=== PATIENT | male | born 1980 | race Caucasian/White ===

== ENCOUNTER 2016-12-31 13:14 | Outpatient (CLI) | payer SELFPAY ==
[2016-12-31] MEDS ORDERED: ALBUTEROL NEB 2.5 MG/3 ML INH ONE (14:00)
== END 2016-12-31 13:15 | disposition home or self-care (01) ==
LOC: RT 13:14
PROVIDERS: ATTEND Internal Medicine
DX: J45.901 Unspecified asthma with (acute) exacerbation (principal)
CPT/HCPCS: 94060; 94729; J7613

== ENCOUNTER 2017-02-24 11:45 | Emergency (ER) | payer SELFPAY ==
[2017-02-24 11:54] VITALS: BP 153/102
[2017-02-24] MEDS ORDERED: BUFFERED LIDOCAINE 10 ML SYRINGE ONE (12:40)
--- NOTE | 2017-02-24 12:40 | ED Physician Documentation ---
PD HPI SKIN - Stated complaint Stated Complaint: RT LEG LUMP - Chief complaint Chief Complaint: Wound - History obtained from History obtained from: Patient - History of Present Illness Timing - onset: Other (There is a red patch in the anterior right thigh that has been there for a few days which is mildly painful, also has a swollen pimple or sebaceous cyst on the right side of the neck. No associated fevers or chills.) Review of Systems Constitutional: denies: Fever, Chills Respiratory: reports: Reviewed and negative GI: reports: Reviewed and negative : reports: Reviewed and negative PD PAST MEDICAL HISTORY - Past Medical History Past Medical History: Yes Cardiovascular: Hypertension Respiratory: Asthma - Past Surgical History Past Surgical History: No - Present Medications Home Medications: Ambulatory Orders Medication Instructions Recorded Confirmed Albuterol Sulfate [Albuterol PRN 10/06/13 10/06/13 Sulfate Hfa] Beclomethasone 40 Mcg [Qvar 40] 10/06/13 10/06/13 Hydrochlorothiazide 10/06/13 10/06/13 Cephalexin [Keflex] 500 mg PO QID #40 capsule 02/24/17 Losartan [Cozaar] 50 mg PO DAILY 02/24/17 02/24/17 amLODIPine [Norvasc] 5 mg PO DAILY 02/24/17 02/24/17 - Allergies Allergies/Adverse Reactions: Allergies Allergy/AdvReac Type Severity Reaction Status Date / Time No Known Drug Allergies Allergy Verified 02/24/17 11:54 - Social History Does the pt smoke?: Yes Smoking Status: Current every day smoker Does the pt drink ETOH?: Yes Does the pt have substance abuse?: No - Immunizations Immunizations are current?: Yes - POLST Patient has POLST: No PD ED PE NORMAL - Vitals Vital signs reviewed: Yes - General General: Alert and oriented X 3, No acute distress - HEENT HEENT: Other (Small sebaceous cyst over the right neck,) - Neck Neck: Supple, no meningeal sign, No bony TTP - Derm Derm: Other (There is a small patch of cellulitis measuring about 2 cm in diameter over the anterior right thigh without palpable abscess or fluid collection on bedside ultrasound.) - Neuro Neuro: Alert and oriented X 3, Normal speech - Psych Psych: Normal mood, Normal affect Results - Vitals Vitals: Vital Signs - 24 hr 02/24/17 11:50 Temperature 36.5 C Heart Rate 74 Respiratory 16 Rate Blood Pressure 153/102 H O2 Saturation 100 Oxygen O2 Source Room air Procedures - Abscess I&D (location) Right neck Preparation: Betadine. No: Lidocaine 1% (he declined anesthetic) Incision: Incised with scalpel, Purulent drainage Other: Pt tolerated well, Dressing applied, Antibiotic prescribed Departure - Departure Disposition: 01 Home, Self Care Clinical Impression: Sebaceous cyst Cellulitis Qualifiers: Site of cellulitis: extremity Site of cellulitis of extremity: lower extremity Laterality: right Qualified Code(s): L03.115 - Cellulitis of right lower limb Condition: Good Record reviewed to determine appropriate education?: Yes Instructions: ED Infec Skin Cellulitis Prescriptions: Cephalexin [Keflex] 500 mg PO QID #40 capsule Comments: Call your doctor to arrange a follow-up appointment, make the next available appointment. In the interim, return anytime if worse or if new symptoms develop. Your blood pressure was elevated today on check into the emergency department. This does not mean that you have hypertension, it is a common phenomenon to come to the emergency department and have elevated blood pressure. I recommend that you see your primary care physician within the week to have it rechecked when you are feeling better. Discharge Date/Time: 02/24/17 12:44
== END 2017-02-24 12:44 | disposition home or self-care (01) ==
LOC: ED 11:45
DX: L72.3 Sebaceous cyst (principal); L03.115 Cellulitis of right lower limb; I10 Essential (primary) hypertension; F17.200 Nicotine dependence, unspecified, uncomplicated
CPT/HCPCS: 10060; 99283

== ENCOUNTER 2019-02-14 11:23 | Emergency (ER) | payer OTHER ==
[2019-02-14] MEDS ORDERED: ONDANSETRON ODT 4 MG TABLET TL STA (12:26)
[2019-02-14] MEDS ORDERED: predniSONE 20 MG TABLET PO STA (12:26)
--- NOTE | 2019-02-14 12:36 | ED Physician Documentation ---
PD HPI ABD PAIN - Stated complaint Stated Complaint: AB PX - Chief complaint Chief Complaint: Abd Pain - History obtained from History obtained from: Patient - History of Present Illness Timing - onset: How many days ago (3) Timing - details: Gradual onset Pain level max: 4 Pain level now: 3 Quality: Cramping Location: All over / everywhere Improved by: Other (nothing) Worsened by: Other (nothing) Associated symptoms: Nausea, Diarrhea. No: Fever, Vomiting, Hematemesis, Constipation, Melena, Hematochezia, Dysuria - Additional information Additional information: 39-year-old male states that he had a flulike illness last week. This week he has nausea without vomiting. Also has some diarrhea, no blood. He also states that he has a right inguinal hernia. Scheduled to see surgery this week. He is having pain at the site, but not significantly more than usual. No swelling. Review of Systems Constitutional: denies: Fever, Chills Respiratory: denies: Cough GI: reports: Nausea, Diarrhea. denies: Vomiting Skin: denies: Rash Musculoskeletal: denies: Neck pain, Back pain Neurologic: denies: Headache PD PAST MEDICAL HISTORY - Past Medical History Cardiovascular: Hypertension Respiratory: Asthma - Past Surgical History Past Surgical History: No - Present Medications Home Medications: Ambulatory Orders Medication Instructions Recorded Confirmed Albuterol Sulfate [Albuterol PRN 10/06/13 10/06/13 Sulfate Hfa] Beclomethasone 40 Mcg [Qvar 40] 10/06/13 10/06/13 Hydrochlorothiazide 10/06/13 10/06/13 Cephalexin [Keflex] 500 mg PO QID #40 capsule 02/24/17 Losartan [Cozaar] 50 mg PO DAILY 02/24/17 02/24/17 amLODIPine [Norvasc] 5 mg PO DAILY 02/24/17 02/24/17 - Allergies Allergies/Adverse Reactions: Allergies Allergy/AdvReac Type Severity Reaction Status Date / Time No Known Drug Allergies Allergy Verified 02/24/17 11:54 - Social History Does the pt smoke?: Yes Smoking Status: Current every day smoker Does the pt drink ETOH?: Yes Does the pt have substance abuse?: No - Immunizations Immunizations are current?: Yes - POLST Patient has POLST: No PD ED PE NORMAL - Vitals Vital signs reviewed: Yes - General General: Alert and oriented X 3, No acute distress - HEENT HEENT: Moist mucous membranes - Neck Neck: Supple, no meningeal sign - Cardiac Cardiac: RRR - Respiratory Respiratory: No respiratory distress, Clear bilaterally - Abdomen Abdomen: Soft, Non tender, Non distended - Male Male : Other (normal. no palpable hernia. ) - Derm Derm: Warm and dry - Extremities Extremities: No deformity, No edema - Neuro Neuro: Alert and oriented X 3 Results - Vitals Vitals: Vital Signs - 24 hr 02/14/19 11:29 Temperature 37.2 C Heart Rate 83 Respiratory 15 Rate Blood Pressure 151/91 H O2 Saturation 100 Oxygen O2 Source Room air - Labs Labs: Laboratory Tests 02/14/19 02/14/19 02/14/19 12:39 12:39 12:45 WBC 5.7 RBC 4.27 L Hgb 14.1 Hct 42.2 MCV 98.8 H MCH 33.0 H MCHC 33.4 RDW 13.3 Plt Count 298 MPV 9.5 Neut # (Auto) 3.0 Lymph # (Auto) 2.0 [place] # (Auto) 0.6 Eos # (Auto) 0.2 Baso # (Auto) 0.0 Absolute Nucleated RBC 0.00 Nucleated RBC % 0.0 Sodium 138 Potassium 4.0 Chloride 104 Carbon Dioxide 26 Anion Gap 8.0 BUN 12 Creatinine 0.8 Estimated GFR (MDRD) 108 Glucose 84 Calcium 9.5 Total Bilirubin 0.7 AST 27 ALT 25 Alkaline Phosphatase 30 L Total Protein 7.8 Albumin 4.4 Globulin 3.4 Albumin/Globulin Ratio 1.3 Lipase 38 Urine Color YELLOW Urine Clarity CLOUDY Urine pH 8.5 H Ur Specific [place] 1.010 Urine Protein NEGATIVE Urine Glucose (UA) NEGATIVE Urine Ketones NEGATIVE Urine Occult Blood NEGATIVE Urine Nitrite NEGATIVE Urine Bilirubin NEGATIVE Urine Urobilinogen 1 (NORMAL) Ur Leukocyte Esterase NEGATIVE Urine RBC 0-5 Urine WBC 0-3 Ur Squamous Epith Cells RARE Squamous Amorphous Sediment Marked Urine Bacteria Few Ur Microscopic Review INDICATED Urine Culture Comments NOT INDICATED PD MEDICAL DECISION MAKING - ED course Complexity details: reviewed results, re-evaluated patient, considered differential, d/w patient ED course: Patient is well-appearing, nontoxic. Afebrile. No evidence of incarcerated hernia. No evidence of bowel obstruction. No significant lab abnormalities. Refuses any further medication. Does have a light rash following his illness last week. Does not want to take any steroids for this. This should improve on its own. We will have him follow-up with his doctor and his surgeon for further evaluation. Patient counseled regarding signs and symptoms for which I believe and urgent re-evaluation would be necessary. Patient with good understanding of and agreement to plan and is comfortable going home at this time This document was made in part using voice recognition software. While efforts are made to proofread this document, sound alike and grammatical errors may occur. Departure - Departure Disposition: 01 Home, Self Care Clinical Impression: Viral gastroenteritis Condition: Good Instructions: ED Gastroenteritis Viral Follow-Up: Ned Gleason MD [Primary Care Provider] - Within 1 week Cheryl Wheat MD [Provider Admit Priv/Credential] - 02/18/19 Comments: This should improve over the next few days. Return if you worsen. Follow-up with Dr. Wheat for further care.
[2019-02-14 12:44] LABS: BASOPHILS % (AUTO) 0.7 %; EOSINOPHILS # (AUTO) 0.2 10^3/uL (0.0-0.7); EOSINOPHILS % (AUTO) 2.6 %; HGB - HEMOGLOBIN 14.1 g/dL (14.0-18.0); LYMPHOCYTES % (AUTO) 34.5 %; MEAN CORPUSCULAR HGB CONC 33.4 g/dL (32.0-36.0); MEAN CORPUSCULAR VOLUME 98.8 fL (80.0-94.0); MEAN PLATELET VOLUME 9.5 fL (7.4-11.4); MONOCYTES # (AUTO) 0.6 10^3/uL (0.0-1.0); MONOCYTES % (AUTO) 10.1 %; NEUTROPHILS % (AUTO) 51.9 %; PLT - PLATELET COUNT 298 10^3/uL (130-450); RED BLOOD COUNT 4.27 10^6/uL (4.70-6.10); RED CELL DISTRIBUTION WIDTH 13.3 % (12.0-15.0); WHITE BLOOD COUNT 5.7 x10^3/uL (4.8-10.8)
[2019-02-14 12:57] LABS: ALBUMIN 4.4 g/dL (3.2-5.5); ALBUMIN/GLOBULIN RATIO 1.3 (1.0-2.2); BILIRUBIN,TOTAL 0.7 mg/dL (0.2-1.0); CALCIUM 9.5 mg/dL (8.5-10.3); CREATININE 0.8 mg/dL (0.6-1.2); TOTAL PROTEIN 7.8 g/dL (6.7-8.2)
[2019-02-14 12:58] LABS: BILIRUBIN,URINE NEGATIVE (NEGATIVE); GLUCOSE, URINE (UA) NEGATIVE (NEGATIVE); KETONES,URINE (UA) NEGATIVE (NEGATIVE); LEUKOCYTE ESTERASE, URINE NEGATIVE (NEGATIVE); NITRITE,URINE NEGATIVE (NEGATIVE); OCCULT BLOOD,URINE NEGATIVE (NEGATIVE); PH,URINE 8.5 PH (5.0-7.5); PROTEIN,URINE NEGATIVE (NEGATIVE); UROBILINOGEN,URINE 1 (NORMAL) E.U./dL (NORMAL)
[2019-02-14 12:59] LABS: CLARITY,URINE CLOUDY (CLEAR)
[2019-02-14 13:08] LABS: AMORPHOUS SEDIMENT,UR Marked /LPF; BACTERIA,URINE Few /HPF (None Seen); RBC,URINE 0-5 /HPF (0-5); SQUAMOUS EPITHELIAL CELL,UR RARE Squamous (<= Few)
[2019-02-14 13:13] VITALS: BP 149/100
== END 2019-02-14 13:17 | disposition home or self-care (01) ==
LOC: ED 11:23
DX: A08.4 Viral intestinal infection, unspecified (principal); I10 Essential (primary) hypertension; J45.909 Unspecified asthma, uncomplicated; F17.200 Nicotine dependence, unspecified, uncomplicated; K40.90 Unilateral inguinal hernia, without obstruction or gangrene, not specified as recurrent; Z79.51 Long term (current) use of inhaled steroids
CPT/HCPCS: 36415; 80053; 81001; 81003; 83690; 85025; 87086; 99283; 99284

== ENCOUNTER 2019-03-06 11:41 | Emergency (ER) | payer OTHER ==
[2019-03-06 13:35] LABS: BASOPHILS % (AUTO) 0.7 %; EOSINOPHILS # (AUTO) 0.1 10^3/uL (0.0-0.7); EOSINOPHILS % (AUTO) 1.3 %; LYMPHOCYTES # (AUTO) 1.5 10^3/uL (1.5-3.5); LYMPHOCYTES % (AUTO) 31.9 %; MEAN CORPUSCULAR HEMOGLOBIN 33.2 pg (27.0-31.0); MEAN CORPUSCULAR HGB CONC 34.4 g/dL (32.0-36.0); MEAN CORPUSCULAR VOLUME 96.5 fL (80.0-94.0); MEAN PLATELET VOLUME 9.3 fL (7.4-11.4); MONOCYTES # (AUTO) 0.4 10^3/uL (0.0-1.0); MONOCYTES % (AUTO) 8.3 %; NEUTROPHILS # (AUTO) 2.7 10^3/uL (1.5-6.6); NEUTROPHILS % (AUTO) 57.8 %; PLT - PLATELET COUNT 331 10^3/uL (130-450); RED BLOOD COUNT 4.52 10^6/uL (4.70-6.10); WHITE BLOOD COUNT 4.6 x10^3/uL (4.8-10.8)
[2019-03-06 13:51] LABS: ALBUMIN 4.9 g/dL (3.2-5.5); ALBUMIN/GLOBULIN RATIO 1.4 (1.0-2.2); CALCIUM 9.8 mg/dL (8.5-10.3); CREATININE 0.7 mg/dL (0.6-1.2); TOTAL PROTEIN 8.4 g/dL (6.7-8.2)
[2019-03-06 14:08] LABS: BILIRUBIN,URINE NEGATIVE (NEGATIVE); GLUCOSE, URINE (UA) NEGATIVE (NEGATIVE); KETONES,URINE (UA) NEGATIVE (NEGATIVE); LEUKOCYTE ESTERASE, URINE NEGATIVE (NEGATIVE); NITRITE,URINE NEGATIVE (NEGATIVE); OCCULT BLOOD,URINE NEGATIVE (NEGATIVE); PH,URINE 7.5 PH (5.0-7.5); PROTEIN,URINE NEGATIVE (NEGATIVE); UROBILINOGEN,URINE 0.2 (NORMAL) E.U./dL (NORMAL)
[2019-03-06 14:09] LABS: CLARITY,URINE CLEAR (CLEAR)
--- NOTE | 2019-03-06 15:59 | Ultrasound Report ---
Reason: RUQ abd pain Procedure Date: 03/06/2019 Accession Number: [id number] / [id number] Procedure: US - Abdomen Limited CPT Code: Final Report FULL RESULT: EXAM: ABDOMEN ULTRASOUND LIMITED, RUQ EXAM DATE: 03/06/2019 03:35 PM. CLINICAL HISTORY: RUQ abd pain. COMPARISON: None. TECHNIQUE: Real-time scanning was performed with static images obtained. FINDINGS: Liver: Normal in size . That infiltrated with areas of fatty sparing adjacent to gallbladder. 17.4 cm. Main portal vein flow: Hepatopetal. Gallbladder: Normal. No stones, wall thickening, or sonographic Parkinson's sign. Biliary System: CBD measures 4 mm. No intrahepatic or extrahepatic ductal dilatation. Right kidney: 12 cm. Unremarkable IMPRESSION: 1. Fatty infiltrated liver. 2. No cholelithiasis or cholecystitis. RADIA
--- NOTE | 2019-03-06 16:17 | ED Physician Documentation ---
PD HPI ABD PAIN - Stated complaint Stated Complaint: RT SIDE INGUINAL HERNIA - SHARP PX - Chief complaint Chief Complaint: Abd Pain - History obtained from History obtained from: Patient, Family - History of Present Illness Timing - onset: Today Timing - duration: Days (1) Timing - details: Gradual onset Pain level max: 5 Pain level now: 4 Quality: Aching, Pain Location: RUQ Radiation: No: Chest, , Lower back, Left flank, Left shoulder, Right flank, Right shoulder, Upper back Improved by: Laying still Worsened by: Moving, Palpation Associated symptoms: Nausea, Constipation. No: Fever, Vomiting, Hematemesis, Diarrhea, Melena, Hematochezia, Dysuria, Hematuria Recently seen: Not recently seen - Additional information Additional information: Patient is scheduled to have a right inguinal hernia repaired in a few days. He is concerned because he is having right upper quadrant abdominal pain now. Review of Systems Constitutional: denies: Fever, Chills Cardiac: denies: Chest pain / pressure Respiratory: denies: Cough GI: denies: Vomiting Skin: denies: Rash Musculoskeletal: denies: Neck pain, Back pain Neurologic: denies: Headache PD PAST MEDICAL HISTORY - Past Medical History Past Medical History: Yes Cardiovascular: Hypertension, High cholesterol, Arrhythmia Respiratory: Asthma, Sleep apnea Endocrine/Autoimmune: None GI: None : None HEENT: None Psych: Claustrophobia Musculoskeletal: Osteoarthritis, Other Derm: Psoriasis - Past Surgical History Past Surgical History: Yes Ortho: Other - Present Medications Home Medications: Ambulatory Orders Medication Instructions Recorded Confirmed Albuterol Sulfate [Albuterol 1 - 2 puffs INH Q4H PRN 10/06/13 03/02/19 Sulfate Hfa] amLODIPine [Norvasc] 5 mg PO DAILY 02/24/17 03/02/19 Beclomethasone Dipropionate [Qvar 1 puffs IH BID 03/02/19 03/02/19 Redihaler (80 mcg)] Losartan/Hydrochlorothiazide 1 each PO DAILY 03/02/19 03/02/19 [Losartan-Hctz 100-25 mg Tab] - Allergies Allergies/Adverse Reactions: Allergies Allergy/AdvReac Type Severity Reaction Status Date / Time No Known Drug Allergies Allergy Verified 03/06/19 11:53 - Social History Does the pt smoke?: Yes Smoking Status: Current every day smoker Does the pt drink ETOH?: Yes Does the pt have substance abuse?: No - Immunizations Immunizations are current?: Yes - POLST Patient has POLST: No PD ED PE NORMAL - Vitals Vital signs reviewed: Yes - General General: Alert and oriented X 3, No acute distress - HEENT HEENT: Moist mucous membranes - Neck Neck: Supple, no meningeal sign - Cardiac Cardiac: RRR - Respiratory Respiratory: No respiratory distress, Clear bilaterally - Abdomen Abdomen: Soft, Non distended, Other (Tender to palpation right upper quadrant. No peritoneal signs. Equivocal Parkinson. No swelling or tenderness in the right inguinal area. No palpable hernia) - Derm Derm: Warm and dry - Extremities Extremities: No edema - Neuro Neuro: Alert and oriented X 3 Results - Vitals Vitals: Oxygen O2 Source Room air - Labs Labs: Laboratory Tests 03/06/19 03/06/19 03/06/19 13:29 13:29 14:00 WBC 4.6 L RBC 4.52 L Hgb 15.0 Hct 43.6 MCV 96.5 H MCH 33.2 H MCHC 34.4 RDW 13.0 Plt Count 331 MPV 9.3 Neut # (Auto) 2.7 Lymph # (Auto) 1.5 [place] # (Auto) 0.4 Eos # (Auto) 0.1 Baso # (Auto) 0.0 Absolute Nucleated RBC 0.00 Nucleated RBC % 0.0 Sodium 139 Potassium 3.6 Chloride 100 L Carbon Dioxide 28 Anion Gap 11.0 BUN 5 L Creatinine 0.7 Estimated GFR (MDRD) 126 Glucose 105 H Calcium 9.8 Total Bilirubin 1.0 AST 35 ALT 32 Alkaline Phosphatase 34 L Total Protein 8.4 H Albumin 4.9 Globulin 3.6 Albumin/Globulin Ratio 1.4 Lipase 31 Urine Color YELLOW Urine Clarity CLEAR Urine pH 7.5 Ur Specific [place] 1.010 Urine Protein NEGATIVE Urine Glucose (UA) NEGATIVE Urine Ketones NEGATIVE Urine Occult Blood NEGATIVE Urine Nitrite NEGATIVE Urine Bilirubin NEGATIVE Urine Urobilinogen 0.2 (NORMAL) Ur Leukocyte Esterase NEGATIVE Ur Microscopic Review NOT INDICATED Urine Culture Comments NOT INDICATED - Rads (name of study) Right upper quadrant ultrasound Radiology: Prelim report reviewed, EMP read contemporaneously, See rad report (Fatty infiltrated liver. No evidence of cholelithiasis or cholecystitis) PD MEDICAL DECISION MAKING - ED course Complexity details: reviewed results, re-evaluated patient, considered diffe rential, d/w patient, d/w family ED course: Symptoms improved in the emergency department. Unclear etiology of his pain. We will have him follow-up with his doctor for further care. Does not appear to be related to his gallbladder. Possible duodenal ulcer? He does use Aleve frequently. We will have him stop this. Patient is well-appearing, nontoxic. Afebrile. Patient counseled regarding signs and symptoms for which I believe and urgent re-evaluation would be necessary. Patient with good understanding of and agreement to plan and is comfortable going home at this time This document was made in part using voice recognition software. While efforts are made to proofread this document, sound alike and grammatical errors may occur. Departure - Departure Disposition: Home, Self Care Clinical Impression: Fatty liver Abdominal pain Qualifiers: Abdominal location: right upper quadrant Qualified Code(s): R10.11 - Right upper quadrant pain Condition: Good Instructions: NAFLD, ED Abdominal Pain Unkn Cause Follow-Up: Ned Gleason MD [Primary Care Provider] - Cheryl Wheat MD [Provider Admit Priv/Credential] - Comments: Your testing is normal today. The cause of your pain is unclear. Follow-up with Dr. Wheat as scheduled for surgery of your hernia. 1. Fatty infiltrated liver. 2. No cholelithiasis or cholecystitis. Discharge Date/Time: 03/06/19 16:32
[2019-03-06 16:32] VITALS: BP 137/105
== END 2019-03-06 16:32 | disposition home or self-care (01) ==
LOC: ED 11:41
DX: K76.0 Fatty (change of) liver, not elsewhere classified (principal); R10.11 Right upper quadrant pain; I10 Essential (primary) hypertension; E78.00 Pure hypercholesterolemia, unspecified; F17.200 Nicotine dependence, unspecified, uncomplicated
CPT/HCPCS: 36415; 76705; 80053; 81001; 81003; 83690; 85025; 87086; 99283; 99284

== ENCOUNTER 2019-03-10 10:00 | Day surgery (SDC) | payer OTHER ==
[~2019-03-10 10:00] MED LIST: BUPIVACAINE 0.5%-EPI 1:200000 PF 30 ML VIAL ONE; LIDOCAINE 1% 50 ML MDV ONE; ceFAZolin 1 GM VIAL ONE
[2019-03-10] MEDS ORDERED: SODIUM CHLORIDE 0.9% 10 ML ONE (10:17)
[2019-03-10] MEDS ORDERED: CEFAZOLIN SODIUM IN 0.9 % NACL 2 GM/100 ML BAG IV ONE (10:27)
[2019-03-10] MEDS ORDERED: LACTATED RINGERS 1,000 ML IV ONE (10:45)
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
[2019-03-10] MEDS ORDERED: BUPIVACAINE 0.5%-EPI 1:200000 PF 30 ML VIAL SUBQ ONE (11:41)
[2019-03-10] MEDS ORDERED: LIDOCAINE 1% 50 ML MDV SUBQ ONE (11:43)
[2019-03-10] MEDS ORDERED: ceFAZolin 1 GM VIAL IR ONE (11:44)
--- NOTE | 2019-03-10 12:18 | OPERATIVE REPORT ---
Operative Report - General Procedure Date: 03/10/19 Planned Procedure: Right Inguinal Hernia Repair Pre-Op Diagnosis: Right Inguinal Hernia Procedure Performed: Right Inguinal Hernia Repair Post Op Diagnosis: Right Inguinal Hernia - Procedure Note Primary Surgeon: Jarret Anesthesia Provider: FÁTIMA Olivas Anesthesia Technique: General LMA, Local, Regional block Pathology: None Estimated Blood Loss (mL): 5 Indications: Symptomatic right inguinal hernia Findings: Direct right inguinal hernia Complications: none apparent - Other Other Information/Narrative: After obtaining informed consent, the patient is brought to the operating room placed in the supine position on the operating table. Following successful induction of general anesthesia, appropriate padding of all bony prominences, and placement of appropriate monitors, the right groin was prepped and draped in the standard surgical fashion. A timeout was held per scope protocol. All elements of the surgical safety checklist were followed before, during, and after the procedure. We began the procedure by infiltrating a mixture of local anesthetics medial to the anterior superior iliac spine on the right side to perform an ileal inguinal nerve block. We continued by selecting it a site for an incision in the right lower quadrant superior and lateral to the pubic tubercle. This was a nesthetized with local anesthetic as well. An incision was created here and carried down through the skin and subcutaneous tissue, through Amadou's fascia, and revealing the external oblique aponeurosis. The aponeurosis was opened in the direction of its fibers and the fibers were reflected laterally and medially. This revealed the spermatic cord. The cord was gently encircled with a [place] drain to provide gentle traction so that the inguinal canal could be explored. We identified a moderate sized direct inguinal hernia. There was no indirect component and there was no significant lipoma of the cord. We elected to repair this defect using a large Prolene hernia system implant. This was dipped in Ancef solution and deployed into the defect per apprentice lineman third step's directions. The posterior leaflet was straightened and flattened in the preperitoneal space. A ana was created in the medial aspect of the mesh in the anterior leaflet for placement of the spermatic cord. The cord was laid gently in this opening and then the mesh was closed using a single Prolene suture. The lateral leaflet of the mesh was tucked under the external oblique aponeurosis and medially the anterior leaflet was sewn to Toni's ligament. The spermatic cord was laid gently on the surface and appeared to be without any tension or constriction. The wound was checked for hemostasis and irrigated with warm saline solution containing Ancef. The external oblique aponeurosis was closed with Vicryl suture, Vicryl Amadou's fascia was closed with Vicryl suture, and Monocryl stitches were placed in the skin. All sponge, needle, and instrument counts were correct at the conclusion of the case. The patient was allowed awaken from anesthesia without difficulty and taken to the postanesthesia care unit in good condition.
[2019-03-10] MEDS ORDERED: ACETAMINOPHEN 325 MG TABLET PO PRN (12:23)
[2019-03-10] MEDS ORDERED: oxyCODONE 5 MG TABLET PO PRN (12:23)
[2019-03-10] MEDS ORDERED: IBUPROFEN 600 MG TABLET PO PRN (12:23)
[2019-03-10] MEDS ORDERED: ONDANSETRON 4 MG/2 ML VIAL IVP PRN (12:23)
[2019-03-10 13:19] VITALS: BP 138/88
== END 2019-03-10 10:01 | disposition home or self-care (01) ==
LOC: SDS 10:00
PROVIDERS: ATTEND Surgery
PROC: 0YU50JZ Supplement Right Inguinal Region with Synthetic Substitute, Open Approach (ICD-10-PCS; principal; 2019-03-10 11:30)
DX: K40.90 Unilateral inguinal hernia, without obstruction or gangrene, not specified as recurrent (principal); I10 Essential (primary) hypertension; E78.00 Pure hypercholesterolemia, unspecified; I49.9 Cardiac arrhythmia, unspecified; J45.909 Unspecified asthma, uncomplicated; G47.30 Sleep apnea, unspecified; K70.0 Alcoholic fatty liver; M19.90 Unspecified osteoarthritis, unspecified site; L40.9 Psoriasis, unspecified; F17.210 Nicotine dependence, cigarettes, uncomplicated; Z79.51 Long term (current) use of inhaled steroids; F10.10 Alcohol abuse, uncomplicated
CPT/HCPCS: 49505; C1781; J0690; J7120

== ENCOUNTER 2019-05-02 10:41 | Emergency (ER) | payer OTHER ==
[2019-05-02 12:12] VITALS: BP 163/100
--- NOTE | 2019-05-02 12:38 | ED Physician Documentation ---
History of Present Illness - Stated complaint Stated Complaint: ABD PX - Chief complaint Chief Complaint: Wound - History obtained from History obtained from: Patient - History of Present Illness Pain level max: 3 Pain level now: 2 - Additonal information Additional information: 39-year-old male states that he had a right inguinal hernia repair in early March. States that he had a rectus abdominus hematoma following that. He is concerned that it may be becoming larger. No fevers. No vomiting. Worse with palpation, better with rest. No diarrhea. No constipation. Review of Systems Constitutional: denies: Fever, Chills GI: denies: Vomiting, Diarrhea Skin: denies: Rash Musculoskeletal: denies: Neck pain, Back pain Neurologic: denies: Headache PD PAST MEDICAL HISTORY - Past Medical History Past Medical History: Yes Cardiovascular: Hypertension, High cholesterol, Arrhythmia, Other Respiratory: Asthma, Sleep apnea Neuro: Head injury Endocrine/Autoimmune: None GI: None, Other : None HEENT: None Psych: Claustrophobia Musculoskeletal: Osteoarthritis, Other Derm: Psoriasis - Past Surgical History Past Surgical History: Yes Ortho: Other - Present Medications Home Medications: Ambulatory Orders Medication Instructions Recorded Confirmed Albuterol Sulfate [Albuterol 1 - 2 puffs INH Q4H PRN 10/06/13 03/02/19 Sulfate Hfa] amLODIPine [Norvasc] 5 mg PO DAILY 02/24/17 03/10/19 Beclomethasone Dipropionate [Qvar 1 puffs IH BID 03/02/19 03/10/19 Redihaler (80 mcg)] Losartan/Hydrochlorothiazide 1 each PO DAILY 03/02/19 03/10/19 [Losartan-Hctz 100-25 mg Tab] - Allergies Allergies/Adverse Reactions: Allergies Allergy/AdvReac Type Severity Reaction Status Date / Time No Known Drug Allergies Allergy Verified 05/02/19 10:53 - Social History Does the pt smoke?: Yes Smoking Status: Current every day smoker Does the pt drink ETOH?: Yes ETOH Use: Beer Does the pt have substance abuse?: No - Immunizations Immunizations are current?: No Immunizations: TDAP >10years/unknown - POLST Patient has POLST: No PD ED PE NORMAL - Vitals Vital signs reviewed: Yes - General General: Alert and oriented X 3, No acute distress, Well developed/nourished - HEENT HEENT: Moist mucous membranes - Neck Neck: Supple, no meningeal sign - Cardiac Cardiac: RRR - Respiratory Respiratory: No respiratory distress, Clear bilaterally - Abdomen Abdomen: Normal bowel sounds, Soft, Non tender, Non distended, Other (No hematoma palpable. Bedside ultrasound reveals normal rectus abdominis musculature. No hematomas. No abscess. No hernias.) - Derm Derm: Warm and dry - Neuro Neuro: Alert and oriented X 3 - Psych Psych: Normal mood, Normal affect Results - Vitals Vitals: Vital Signs - 24 hr 05/02/19 05/02/19 10:51 12:10 Temperature 36.8 C 36.7 C Heart Rate 72 66 Respiratory 16 18 Rate Blood Pressure 164/101 H 163/100 H O2 Saturation 99 98 Oxygen O2 Source Room air PD MEDICAL DECISION MAKING - ED course Complexity details: considered differential, d/w patient ED course: Patient with abdominal discomfort following surgery approximately 8 weeks ago. No fevers. No changes in bowel habits. No hematoma visible on ultrasound. He is very well-appearing, nontoxic. We will hold lab work at this time. We will have him follow-up with his surgeon for further care. Patient counseled regarding signs and symptoms for which I believe and urgent re-evaluation would be necessary. Patient with good understanding of and agreement to plan and is comfortable going home at this time This document was made in part using voice recognition software. While efforts are made to proofread this document, sound alike and grammatical errors may occur. Departure - Departure Disposition: 01 Home, Self Care Clinical Impression: Abdominal pain Qualifiers: Abdominal location: unspecified location Qualified Code(s): R10.9 - Unspecified abdominal pain Condition: Good Instructions: ED Abdominal Pain Unkn Cause Follow-Up: Ned Gleason MD [Primary Care Provider] - Cheryl Wheat MD [Provider Admit Priv/Credential] - Within 1 week Comments: Your ultrasound appears normal today. There is no rectus abdominis hematoma on ultrasound. Return if you worsen. Follow-up with your doctor for further care.
== END 2019-05-02 12:43 | disposition home or self-care (01) ==
LOC: ED 10:41
DX: R10.9 Unspecified abdominal pain (principal); I10 Essential (primary) hypertension; E78.00 Pure hypercholesterolemia, unspecified; F17.200 Nicotine dependence, unspecified, uncomplicated; Z98.890 Other specified postprocedural states
CPT/HCPCS: 99282

== ENCOUNTER 2019-05-05 10:03 | Outpatient (CLI) | payer OTHER ==
[2019-05-05 12:39] VITALS: BP 149/100
--- NOTE | 2019-05-05 12:39 | SLEEP CARE CONSULTATION ---
Information from patient questionnaire entered by Eulalia Eastman. I have reviewed and concur with the information entered by Eulalia Eastman. This document represents the service I personally performed and the decisions made by me, Wesley Renee MD, [facility]. History of Present Illness Reason for Visit: New patient Chief Complaint: reports: Snoring, Observed pauses in breathing Duration of Symptoms: 5 years Usual bedtime: 2230 Time it takes to fall asleep: minutes Snores at night: Yes Observed to quit breathing while asleep: Yes Sleeps alone due to snoring: No Number of times waking at night: 0 Toss, Turn, or Twitch while sleeping: No Recalls having dreams: Yes Usually gets out of bed at: 0500 Feels refreshed in the morning: No Morning headache: No Sleepy or fatigued during the day: Yes Ever fallen asleep while driving: No Takes day naps: Yes Dreams during day naps: No Prior sleep studies: No Additional HPI information: I had the pleasure of seeing Mr. Galindo today regarding the possibility of him having a sleep disorder. As you know, he is a 39 year old gentleman who complains of loud snore and observed apneas. The patient tells me that he normally goes to bed around 10:30 pm, and it takes him approximately just a few minutes to fall asleep. He has been told that he snores loudly and irregularly at night. He has also been observed to stop breathing in his sleep. His can still sleep in the same bed, but she wears earplugs. He can recall waking up on the average of 0 times during the night. He has awakened occasionally because of his own snoring, choking, and having to gasp for air. There is not a lot of tossing and turning in his sleep. He reports having somniloquy (sleep talking) but not somnambulism (sleep walking). Generally he can recall having dreams. In the morning he usually gets up out of the bed around 5 a.m. not feeling refreshed nor rested. He usually does not have a morning headache. During the day he complains of feeling sleepy and fatigued. His score on Colmar Sleepiness Scale is 4 out of 24. He has never fallen asleep while driving nor has had any accident due to sleepiness. He usually takes naps during the day. Upon falling asleep during the day he denies having vivid dreams. He has never had sleep paralysis, experienced cataplexy or symptoms of restless leg syndrome. He denies having impaired concentration during the day. 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 Patient is and lives in [place]. Have you smoked in the past 12 months: Yes Cigarettes per day (20/pack): 20 Years of smokin Smoking Pack Years: 20.0 Alcohol use: Yes Alcohol amount and frequency: 8 beers/day Caffeine use: Yes Caffeine amount and frequency: 5 cups coffee Family History Family history of sleep disordered breathing: No Allergies and Home Medications Drug allergies reviewed: Yes Home medication list reviewed: Yes Allergy and home medication list: Meds: Losartan-hydrochlorothiazide, amlodipine, Q-Navjot, albuterol inhaler Review of Systems Cardiovascular: reports: high blood pressure Respiratory: denies: shortness of breath, wheeze, sputum production, chronic cough, other Gastrointestinal: reports: abdominal pain Neurological: reports: head trauma Ear/Nose/Throat: denies: nasal congestion, sinus problems, nose bleeds, dry mouth/throat, hoarseness, injury to nose, tonsillectomy, wisdom teeth removed, other Endocrine: denies: thyroid disease, history of goiter, sluggishness, too hot or cold, excessive thirst, increased appetite, increased urination, unexplained weakness, other Musculoskeletal: reports: joint pain Immunologic: denies: sneezing, rash, itching, allergies to food or environment, other Physical Exam Vital signs obtained and entered by: Dr. Renee Blood Pressure: 149/100 Cuff size: regular Heart Rate: 88 O2 Saturation: 97 Height: 6 ft Weight: 184 lb Body Mass Index: 24.9 BMI Classification: Healthy weight Neck circumference: 15 Mood/affect: normal HEENT: No craniofacial malformation Nostrils: partially obstructed Turbinates: normal Septum: deviated left Mouth and throat: narrow oropharynx Soft palate: long Hard palate: normal Uvula: normal Uvula visualization: 50% Mallampati Class II Tongue: normal in size Tonsils: small Chin and jaw: normal size and position Neck: normal w/o lymphadenopathy or thyromegaly Heart: regular rate and rhythm Lungs: clear bilaterally Abdomen: soft, non-tender Extremities: no edema or clubbing Neurologic: intact, no focal deficits Impression and Plan IMPRESSION: 1. Obstructive Sleep Apnea-Hypopnea Syndrome, as suggested by history of loud and irregular snoring, observed cessation of breath while asleep, nocturnal choking, unrefreshed sleep, and daytime hypersomnolence. Narrow oropharynx and obesity are common predisposing factors for obstructive sleep apnea-hypopnea syndrome. Untreated obstructive sleep apnea can also cause hypertension. Pathophysiology of sleep-disordered breathing was discussed. I recommend proceeding to polysomnography to confirm the diagnosis and to assess severity. If he has significant sleep disordered breathing, a manual CPAP titration study will also be performed to find the optimal treatment pressure. I informed the patient of what the sleep studies involve and after some discussion, he agreed to proceed. Plan: 1. Schedule polysomnography + manual CPAP titration study 2. Avoid long distance driving or when feeling sleepy. 3. Avoid alcohol, sedative and muscle relaxant around bedtime. 4. Return in 1 to 2 weeks after the study to discuss results and initiate therapy. I spent 100% of this visit face to face with the patient with greater than 50% of this was spent time counseling the patient and coordination of care.
== END 2019-05-05 10:04 | disposition home or self-care (01) ==
LOC: SC 10:03
PROVIDERS: ATTEND Internal Medicine Pulmonary Disease
DX: G47.10 Hypersomnia, unspecified (principal); R06.81 Apnea, not elsewhere classified; R06.83 Snoring; F17.210 Nicotine dependence, cigarettes, uncomplicated
CPT/HCPCS: 99203; 99212

== ENCOUNTER 2019-05-08 09:46 | Outpatient (CLI) | payer OTHER ==
[2019-05-08] MEDS ORDERED: IOVERSOL 320 50 ML VIAL ONE (10:02)
[2019-05-08] MEDS ORDERED: IOVERSOL 320 100 ML VIAL IVP ONE ×2 (10:02→11:11)
[2019-05-08 10:17] LABS: ALBUMIN 4.7 g/dL (3.2-5.5); ALBUMIN/GLOBULIN RATIO 1.4 (1.0-2.2); ALKALINE PHOSPHATASE 32 IU/L (42-121); ALT ALANINE AMINOTRANSFERASE 37 IU/L (10-60); AST ASPARTATE AMINOTRANSFERASE 40 IU/L (10-42); BILIRUBIN,TOTAL 0.8 mg/dL (0.2-1.0); BUN - BLOOD UREA NITROGEN < 5 mg/dL (6-20); CALCIUM 9.8 mg/dL (8.5-10.3); CARBON DIOXIDE - CO2 28 mmol/L (21-32); CHLORIDE 99 mmol/L (101-111); CREATININE 0.7 mg/dL (0.6-1.2); GFR - MDRD 126 (>89); GLUCOSE 102 mg/dL (70-100); SODIUM 136 mmol/L (135-145); TOTAL PROTEIN 8.1 g/dL (6.7-8.2)
[2019-05-08] MEDS ORDERED: IOVERSOL 320 50 ML VIAL PO ONE (11:11)
--- NOTE | 2019-05-09 05:37 | CT Report ---
Reason: ABD PAIN Procedure Date: 05/08/2019 Accession Number: [id number] / [id number] Procedure: CT - Abdomen/Pelvis W CPT Code: Final Report FULL RESULT: EXAM: CT ABDOMEN AND PELVIS EXAM DATE: 05/08/2019 11:09 AM. CLINICAL HISTORY: 39-year-old male with pain and swelling in right testicle. Postop 2 months from a right pantaloon hernia repair. COMPARISONS: None. TECHNIQUE: Routine helical CT imaging was performed through the abdomen and pelvis. IV contrast: OPTI 320 90ML. Enteric contrast: Yes. Reconstructions: Coronal and sagittal. In accordance with CT protocol optimization, one or more of the following dose reduction techniques were utilized for this exam: automated exposure control, adjustment of mA and/or KV based on patient size, or use of iterative reconstructive technique. FINDINGS: Lung Bases: Clear lung bases. The visible heart is normal in size. Liver: Focal fatty infiltration is seen along the falciform ligament. No intrahepatic mass. Gallbladder/Bile Ducts: Punctate hyperdensity in the gallbladder adjacent to the wall may represent a tiny stone ( series 3, image 30). Otherwise normal gallbladder. No biliary dilatation. Spleen: Normal. Pancreas: Normal. Adrenal Glands: Normal. Kidneys: Normal. No masses or hydronephrosis. Peritoneal Cavity/Bowel: The intestines are normal in caliber and position. The appendix is normal. There is no evidence of bowel obstruction. No free intraperitoneal air or ascites is seen. There is no lymphadenopathy. The appendix is well visualized and normal. Pelvic Organs: Mild bladder wall thickening measuring up to 5 mm. The prostate gland is normal. No free pelvic fluid. Vasculature: No aneurysm. Minimal atherosclerotic plaque calcification of the aorta. Left circumaortic renal vein. Bones: No significant abnormality. Other: Soft tissue attenuation is seen in the right pelvis and extending into the right inguinal canal, which likely represents a small hematoma. Mild surrounding soft tissue edema is seen which extends to the incision site. There is no evidence of recurrent hernia. A calcification is seen in the left scrotal sac, which may represent a scrotolith. The visible portions of the testes are grossly normal. No hydrocele is seen. IMPRESSION: 1. Soft tissue attenuation in the region of the right pelvis and extending into the right inguinal canal likely represents a small resolving postoperative hematoma. There is no CT evidence of recurrent hernia. 2. Mild bladder wall thickening, which represents a nonspecific finding but can be seen in the setting of cystitis. RADIA
== END 2019-05-08 09:47 | disposition home or self-care (01) ==
LOC: DI 09:46
PROVIDERS: ATTEND Surgery
DX: R10.13 Epigastric pain (principal); I10 Essential (primary) hypertension
CPT/HCPCS: 36415; 74177; 80053; Q9967

== ENCOUNTER 2021-02-27 12:40 | Outpatient (CLI) | payer OTHER ==
--- NOTE | 2021-03-02 10:22 | Ultrasound Report ---
PROCEDURE: Testicle INDICATIONS: TESTICULAR PAIN TECHNIQUE: Real-time scanning was performed of the scrotum and testicles, with image documentation. Color and p ulse Doppler interrogation was performed of both testicles. COMPARISON: None. FINDINGS: Right: Testicle is normal in size at 5.4 x 2.3 x 3.5 cm, and homogenous in echotexture. Epididymis is normal in overall size and morphology. Small hydrocele and varicocele. Overlying scrotal skin is n ormal in thickness. Left: Testicle is normal in size at 4.7 x 2.4 x 3.4 cm, and homogeneous in echotexture. Epididymis is normal in overall size and morphology. Small hydrocele and varicocele. Overlying scrotal skin is n ormal in thickness. Doppler: Color and pulse Doppler demonstrate normal and symmetric arterial flow in both testicles. IMPRESSION: 1. Normal testicles. Normal flow without masses. 2. Small bilateral varicoceles. Reviewed by: Keanu Burdick MD on 03/02/2021 10:21 AM PDT Approved by: Keanu Burdick MD on 03/02/2021 10:21 AM PDT Station ID: [id number]
== END 2021-02-27 12:41 | disposition home or self-care (01) ==
LOC: DI 12:40
PROVIDERS: ATTEND Surgery
DX: N50.812 Left testicular pain (principal); I86.1 Scrotal varices

== ENCOUNTER 2021-04-10 10:11 | Outpatient (CLI) | payer OTHER ==
[2021-04-10 15:03] LABS: BASOPHILS % (AUTO) 0.9 %; EOSINOPHILS # (AUTO) 0.1 10^3/uL (0.0-0.7); EOSINOPHILS % (AUTO) 1.9 %; HCT - HEMATOCRIT 44.9 % (42.0-52.0); HGB - HEMOGLOBIN 15.3 g/dL (14.0-18.0); LYMPHOCYTES # (AUTO) 1.3 10^3/uL (1.5-3.5); LYMPHOCYTES % (AUTO) 27.7 %; MEAN CORPUSCULAR HEMOGLOBIN 33.9 pg (27.0-31.0); MEAN CORPUSCULAR HGB CONC 34.1 g/dL (32.0-36.0); MEAN CORPUSCULAR VOLUME 99.6 fL (80.0-94.0); MEAN PLATELET VOLUME 10.6 fL (7.4-11.4); MONOCYTES # (AUTO) 0.4 10^3/uL (0.0-1.0); NEUTROPHILS # (AUTO) 2.8 10^3/uL (1.5-6.6); NEUTROPHILS % (AUTO) 60.3 %; PLT - PLATELET COUNT 295 10^3/uL (130-450); RED BLOOD COUNT 4.51 10^6/uL (4.70-6.10); WHITE BLOOD COUNT 4.7 x10^3/uL (4.8-10.8)
[2021-04-10 15:27] LABS: ALBUMIN 4.7 g/dL (3.2-5.5); ALBUMIN/GLOBULIN RATIO 1.5 (1.0-2.2); ALKALINE PHOSPHATASE 42 IU/L (42-121); ALT ALANINE AMINOTRANSFERASE 34 IU/L (10-60); AST ASPARTATE AMINOTRANSFERASE 43 IU/L (10-42); BILIRUBIN,TOTAL 0.7 mg/dL (0.2-1.0); BUN - BLOOD UREA NITROGEN 6 mg/dL (6-20); CALCIUM 9.6 mg/dL (8.5-10.3); CARBON DIOXIDE - CO2 29 mmol/L (21-32); CHLORIDE 100 mmol/L (101-111); CHOLESTEROL 222 mg/dL; CREATININE 0.7 mg/dL (0.6-1.2); GFR - MDRD 124 (>89); GLUCOSE 84 mg/dL (70-100); HDL CHOLESTEROL 73 mg/dL; LDL CHOLESTEROL,CALCULATED 133 mg/dL; LDL/HDL RATIO 1.8 (<3.6); POTASSIUM 3.9 mmol/L (3.5-5.0); SODIUM 137 mmol/L (135-145); TOTAL PROTEIN 7.9 g/dL (6.7-8.2); TRIGLYCERIDES 78 mg/dL; VLDL CHOLESTEROL 16 mg/dL
[2021-04-10 15:37] LABS: THYROID STIMULATING HORMONE 0.97 uIU/mL (0.34-5.60)
[2021-04-10 21:58] LABS: CHLAMYDIA TRACHOMATIS DNA NEGATIVE (NEGATIVE); NEISSERIA GONORRHOEAE DNA NEGATIVE (NEGATIVE)
[2021-04-11 13:26] LABS: HEPATITIS B CORE AB TOTAL NON-REACTIVE (NON-REACTIVE)
[2021-04-11 16:26] LABS: HIV AG/AB 4TH GEN NON-REACTIVE (NON-REACTIVE)
[2021-04-12 13:46] LABS: HSV 1 IGG TYPE SPECIFIC AB <0.90 index; HSV 2 IGG TYPE SPECIFIC AB <0.90 index
== END 2021-04-10 10:12 | disposition home or self-care (01) ==
LOC: LAB.S 10:11
PROVIDERS: ATTEND Registered Nurse
DX: I10 Essential (primary) hypertension (principal); Z79.899 Other long term (current) drug therapy; F17.200 Nicotine dependence, unspecified, uncomplicated; Z11.3 Encounter for screening for infections with a predominantly sexual mode of transmission
CPT/HCPCS: 36415; 80053; 80061; 81599; 83721; 84443; 85025; 86695; 86696; 86704; 87389; 87491; 87591; 87661

== ENCOUNTER 2022-02-26 08:00 | Outpatient (CLI) | payer OTHER ==
--- NOTE | 2022-02-26 16:38 | XRAY Report ---
PROCEDURE: Knee 3 View LT INDICATIONS: EFFUSION OF LEFT KNEE TECHNIQUE: 3 views of the left knee(s) were acquired. COMPARISON: None. FINDINGS: Bones: No fractures or dislocations. No suspicious bony lesions. No patella subluxation. Soft tissues: Small to moderate suprapatellar joint effusion is seen. No suspicious soft tissue calc ifications. IMPRESSION: Small to moderate suprapatellar joint effusion. No left knee fracture or dislocation. No suspicious bony lesion. If indicated, MRI of knee can be done for evaluation of internal derangement . Reviewed by: Reji Cavazos MD on 02/26/2022 4:36 PM PDT Approved by: Reji Cavazos MD on 02/26/2022 4:36 PM PDT Station ID: [id number]
== END 2022-02-26 23:59 | disposition home or self-care (01) ==
LOC: DI.S 08:00
PROVIDERS: ATTEND Physician Assistant
DX: M25.462 Effusion, left knee (principal); M71.22 Synovial cyst of popliteal space [Baker], left knee

== ENCOUNTER 2022-03-15 15:38 | Outpatient (CLI) | payer OTHER ==
--- NOTE | 2022-03-15 18:04 | XRAY Report ---
PROCEDURE: Knee 3 View LT INDICATIONS: LEFT KNEE PAIN TECHNIQUE: 3 views of the left knee(s) were acquired. COMPARISON: 02/26/2022 FINDINGS: Bones: No fractures or dislocations. No suspicious bony lesions. Mild medial compartmental joint s pace narrowing Soft tissues: Moderate joint effusion. No suspicious soft tissue calcifications. IMPRESSION: Persistent moderate joint effusion and medial compartmental joint space narrowing Reviewed by: Anand Bradley MD on 03/15/2022 5:02 PM [facility] Approved by: Anand Bradley MD on 03/15/2022 5:02 PM [facility] Station ID: [id number]
== END 2022-03-15 15:39 | disposition home or self-care (01) ==
LOC: DI.WOS 15:38
PROVIDERS: ATTEND Physician Assistant Surgical
DX: M25.462 Effusion, left knee (principal)

== ENCOUNTER 2022-04-11 10:31 | Outpatient (CLI) | payer OTHER ==
--- NOTE | 2022-04-11 12:03 | MRI Report ---
PROCEDURE: KNEE WO - LT INDICATIONS: EFFUSION LEFT KNEE TECHNIQUE: Noncontrast sagittal PD fast spin echo and T2 fast spin echo with fat saturation, sagittal 3-D gradie nt sequence with fat saturation; coronal T1 spin echo and PD fast spin echo with fat saturation, and axial PD fast spin echo with fat saturation through the knee. COMPARISON: None. FINDINGS: Image quality: Excellent. Menisci: There is truncation involving the free edge of the body of the patient's medial meniscus. La teral meniscus appears within normal limits. Cruciate ligaments: The anterior and posterior cruciate ligaments appear intact. Medial structures: The medial collateral ligament appears intact. The posterior oblique ligament, s emimembranosus tendon insertions, and oblique popliteal ligament, and meniscocapsular junction appear intact. Visualized portions of the pes anserinus tendons appear normal. No abnormal bursal fluid. Lateral structures: The lateral collateral ligament, long and short heads of the biceps femoris tend on appear intact. The popliteus tendon appears normal; the popliteofibular ligament appears intact. The posterosuperior and anteroinferior popliteomeniscal fascicles appear intact. The arcuate and fa bellofibular ligaments appear intact, around the lateral inferior geniculate artery. Iliotibial band appears normal. Anterior structures: The quadriceps and patellar tendons appear intact. Patellar alignment is kory l. No femoral trochlear dysplasia or ventral trochlear prominence. No edema in the infrapatellar fa t pad. Bones and cartilage: No bone marrow contusions or fractures. There is a focal area [id number] chondromalacia and fissuring involving the medial patellar articular facet. There is also some mild c hondromalacia involving the articular surface of the medial compartment. Joint space: There is a small knee joint effusion and the moderate-sized Mensah cyst posterior to the knee. IMPRESSION: 1. Truncation involving the free edge of body of the patient's medial meniscus. Question prior menisc al injury with remodeling. 2. [id number] focal area of chondromalacia and fissuring involving the medial patellar articula r facet. 3. Mild chondromalacia involving the articular surface of the medial compartment. 4. Small knee joint effusion. 5. Moderate sized Mensah's cyst. Reviewed by: Price Kelley MD on 04/11/2022 12:02 PM PST Approved by: Price Kelley MD on 04/11/2022 12:02 PM [facility] Station ID: [id number]
== END 2022-04-11 10:32 | disposition home or self-care (01) ==
LOC: DI 10:31
PROVIDERS: ATTEND Physician Assistant
DX: M25.462 Effusion, left knee (principal); M23.92 Unspecified internal derangement of left knee; M22.42 Chondromalacia patellae, left knee; M71.22 Synovial cyst of popliteal space [Baker], left knee

== ENCOUNTER 2022-10-04 14:55 | Outpatient (CLI) | payer OTHER ==
--- NOTE | 2022-10-04 19:41 | Ultrasound Report ---
PROCEDURE: Testicle, ultrasound INDICATIONS: MALE DYSPAREUNIA TECHNIQUE: Real-time scanning was performed of the scrotum and testicles, with image documentation. Color and p ulse Doppler interrogation was performed of both testicles. COMPARISON: None. FINDINGS: Right: Testicle is normal in size at 4.7 x 2.7 x 3.2 cm, and homogenous in echotexture. Epididymis is normal in overall size and morphology. Small hydrocele. Overlying scrotal skin is normal in thick ness. Left: Testicle is normal in size at 4.5 x 2.7 x 3.1 cm, and homogeneous in echotexture. Epididymis is normal in overall size and morphology. No hydrocele or varicoceles. Overlying scrotal skin is no rmal in thickness. Incidental small 4 mm left scrotal calcification, benign. Doppler: Color and pulse Doppler demonstrate normal and symmetric arterial flow in both testicles. IMPRESSION: Unremarkable testicular ultrasound. Incidental small left scrotal benign calcification. Reviewed by: Anand Bradley MD on 10/04/2022 6:40 PM [facility] Approved by: Anand Bradley MD on 10/04/2022 6:40 PM [facility] Station ID: [id number]
--- NOTE | 2022-10-04 20:06 | Ultrasound Report ---
PROCEDURE: Pelvic Limited or F/U INDICATIONS: INGUINAL HERNIA TECHNIQUE: Real-time transabdominal scanning was performed of the inguinal region, with image documentation. COMPARISON: None. FINDINGS: Probable small right inguinal hernia identified measuring 1.4 cm. More definitive left inguinal herni a measures 1.5 cm, with movement on Valsalva IMPRESSION: Possible right inguinal hernia measures 1.4 cm. Consider follow-up CT. Definitive left inguinal hernia with motion on Valsalva noted measuring 1.5 cm Reviewed by: Anand Bradley MD on 10/04/2022 7:04 PM [facility] Approved by: Anand Bradley MD on 10/04/2022 7:04 PM [facility] Station ID: [id number]
== END 2022-10-04 14:56 | disposition home or self-care (01) ==
LOC: DI 14:55
PROVIDERS: ATTEND Nurse Practitioner
DX: N53.12 Painful ejaculation (principal); K40.90 Unilateral inguinal hernia, without obstruction or gangrene, not specified as recurrent

== ENCOUNTER 2023-11-22 10:02 | Outpatient (CLI) | payer OTHER ==
[2023-11-22 14:41] LABS: BASOPHILS # (AUTO) 0.1 10^3/uL (0.0-0.1); BASOPHILS % (AUTO) 0.7 %; EOSINOPHILS # (AUTO) 0.1 10^3/uL (0.0-0.7); EOSINOPHILS % (AUTO) 1.1 %; HCT - HEMATOCRIT 43.4 % (42.0-52.0); HGB - HEMOGLOBIN 14.4 g/dL (14.0-18.0); LYMPHOCYTES # (AUTO) 1.6 10^3/uL (1.5-3.5); LYMPHOCYTES % (AUTO) 21.5 %; MEAN CORPUSCULAR HEMOGLOBIN 32.7 pg (27.0-31.0); MEAN CORPUSCULAR HGB CONC 33.2 g/dL (32.0-36.0); MEAN CORPUSCULAR VOLUME 98.6 fL (80.0-94.0); MEAN PLATELET VOLUME 10.5 fL (7.4-11.4); MONOCYTES # (AUTO) 0.6 10^3/uL (0.0-1.0); MONOCYTES % (AUTO) 8.3 %; NEUTROPHILS # (AUTO) 4.9 10^3/uL (1.5-6.6); NEUTROPHILS % (AUTO) 68.1 %; PLT - PLATELET COUNT 323 10^3/uL (130-450); RED CELL DISTRIBUTION WIDTH 13.2 % (12.0-15.0); WHITE BLOOD COUNT 7.2 x10^3/uL (4.8-10.8)
[2023-11-22 14:47] LABS: ALBUMIN 4.9 g/dL (3.2-5.5); ALBUMIN/GLOBULIN RATIO 1.7 (1.0-2.2); ALKALINE PHOSPHATASE 44 IU/L (42-121); ALT ALANINE AMINOTRANSFERASE 37 IU/L (10-60); AST ASPARTATE AMINOTRANSFERASE 45 IU/L (10-42); BILIRUBIN,TOTAL 0.9 mg/dL (0.2-1.0); BUN - BLOOD UREA NITROGEN 6 mg/dL (6-20); CALCIUM 9.9 mg/dL (8.5-10.3); CARBON DIOXIDE - CO2 27 mmol/L (21-32); CHLORIDE 101 mmol/L (101-111); CHOL/HDL RATIO 3.3 (<5.0); CHOLESTEROL 191 mg/dL; CREATININE 0.6 mg/dL (0.6-1.3); GFR - MDRD 147 (>89); GLUCOSE 86 mg/dL (74-104); HDL CHOLESTEROL 58 mg/dL; LDL CHOLESTEROL,CALCULATED 118 mg/dL; POTASSIUM 4.2 mmol/L (3.5-4.5); SODIUM 135 mmol/L (135-145); TOTAL PROTEIN 7.8 g/dL (6.4-8.9); TRIGLYCERIDES 76 mg/dL; VLDL CHOLESTEROL 15 mg/dL
[2023-11-22 15:01] LABS: THYROID STIMULATING HORMONE 0.89 uIU/mL (0.34-5.60)
[2023-11-23 05:12] LABS: HIV SCREEN 4TH GENERATION Non Reactive (Non Reactive)
[2023-11-23 06:10] LABS: HSV 1 IGG TYPE SPEC <0.91 index (0.00-0.90); HSV 2 IGG TYPE SPEC <0.91 index (0.00-0.90)
[2023-11-23 08:10] LABS: RPR Non Reactive (Non Reactive)
[2023-11-25 06:08] LABS: HCV AB Non Reactive (Non Reactive)
== END 2023-11-22 10:03 | disposition home or self-care (01) ==
LOC: LAB.S 10:02
PROVIDERS: ATTEND Nurse Practitioner Gerontology
DX: Z13.9 Encounter for screening, unspecified (principal)
CPT/HCPCS: 36415; 80053; 80061; 83721; 84153; 84443; 85025; 86592; 86695; 86696; 86803; 87255; 87389

== ENCOUNTER 2024-01-29 12:27 | Emergency (ER) | payer OTHER ==
[2024-01-29 12:38] VITALS: O2SAT 100
--- NOTE | 2024-01-29 12:54 | ED Physician Documentation ---
PD HPI NVD - Stated complaint Stated Complaint: DIARRHEA - Chief complaint Chief Complaint: Abd Pain - History obtained from History obtained from: Patient - History of Present Illness Timing - onset: How many days ago (5) Timing - duration: Days (5) Timing - details: Abrupt onset, Still present Associated symptoms: Abdominal pain (cramping intermittently), Melena (he states his stool bacame dark black appearing the past 2 days. Had been taking PeptoBismol for his stomach ache.). No: Hematemesis, Hematochezia Contributing factors: No: Bad food Similar symptoms before: Has not had sx before Review of Systems Constitutional: denies: Fever, Chills, Myalgias GI: reports: Abdominal Pain (intermittent cramping) Neurologic: denies: Generalized weakness, Near syncope, Syncope PD PAST MEDICAL HISTORY - Past Medical History Past Medical History: Yes Cardiovascular: Hypertension, High cholesterol, Arrhythmia, Other Respiratory: Asthma, Sleep apnea Neuro: Head injury Endocrine/Autoimmune: None GI: None, Other : None HEENT: None Psych: Claustrophobia Musculoskeletal: Osteoarthritis, Other Derm: Psoriasis - Past Surgical History Past Surgical History: Yes Ortho: Other - Present Medications Home Medications: Ambulatory Orders Medication Instructions Recorded Confirmed Albuterol Sulfate [Albuterol 1 - 2 puffs INH Q4H PRN 10/06/13 03/02/19 Sulfate Hfa] amLODIPine [Norvasc] 5 mg PO DAILY 02/24/17 03/10/19 Beclomethasone Dipropionate [Qvar 1 puffs IH BID 03/02/19 03/10/19 Redihaler (80 mcg)] Losartan/Hydrochlorothiazide 1 each PO DAILY 03/02/19 03/10/19 [Losartan-Hctz 100-25 mg Tab] Diphenoxylate/Atropine [Lomotil] 1 each PO QID PRN #12 tablet 01/29/24 Famotidine [Pepcid] 20 mg PO BID #20 tablet 01/29/24 Ondansetron Odt [Zofran] 4 mg TL Q6H PRN #10 tablet 01/29/24 - Allergies Allergies/Adverse Reactions: Allergies Allergy/AdvReac Type Severity Reaction Status Date / Time No Known Drug Allergies Allergy Verified 01/29/24 12:33 - Social History Does the pt smoke?: Yes Smoking Status: Current every day smoker Does the pt drink ETOH?: Yes Does the pt have substance abuse?: No - Immunizations Immunizations are current?: No Immunizations: TDAP >10years/unknown - POLST Patient has POLST: No PD ED PE NORMAL - Vitals Vital signs reviewed: Yes (elevated blood pressure) - General General: Alert and oriented X 3, Well developed/nourished - Cardiac Cardiac: RRR, No murmur - Respiratory Respiratory: No respiratory distress, Clear bilaterally - Abdomen Abdomen: Normal bowel sounds, Soft, Non distended, Other (Mild tenderness with some guarding in the epigastric area. No percussion or rebound tenderness. Lower abdomen nontender.) - Rectal Rectal: Deferred (pt giving stool sample from which we can do guaiac testing, but subsequently no BM here in ED, so rectal with guaiac testing obtained. Black coloration. No hemorrhoids. ) Results - Vitals Vitals: Vital Signs - 24 hr 01/29/24 01/29/24 12:33 14:35 Temperature 36.5 C 36.5 C Heart Rate 68 66 Respiratory 16 16 Rate Blood Pressure 180/100 H 150/90 H O2 Saturation 100 100 Oxygen O2 Source Room air - Labs Labs: Microbiology 01/29/24 14:01 Occult Blood - Final Stool - Loose Consistency Laboratory Tests 01/29/24 01/29/24 13:04 13:04 WBC 5.9 RBC 4.62 L Hgb 15.3 Hct 45.4 MCV 98.3 H MCH 33.1 H MCHC 33.7 RDW 13.0 Plt Count 317 MPV 9.5 Neut # (Auto) 3.6 Lymph # (Auto) 1.6 [place] # (Auto) 0.6 Eos # (Auto) 0.1 Baso # (Auto) 0.0 Absolute Nucleated RBC 0.00 Nucleated RBC % 0.0 Sodium 137 Potassium 4.3 Chloride 102 Carbon Dioxide 29 Anion Gap 6.0 BUN 6 Creatinine 0.7 Estimated GFR (MDRD) 123 Glucose 92 Calcium 9.8 Total Bilirubin 0.8 AST 35 ALT 30 Alkaline Phosphatase 43 Total Protein 7.3 Albumin 4.8 Globulin 2.5 Albumin/Globulin Ratio 1.9 Lipase 30 PD Medical Decision Making - ED course Complexity details: reviewed results (stool is darker colored but tests guaiac negative. Presume coloration from pepto. Has had some dirrhea wthen, without blood, but with some gastric symptoms (nausea, initial emesis but not since) c/w viral GE. Can treat symptoms.), re-evaluated patient (BP initially elevated at 180/100 that decreased without specific treatment to 150/90.), considered differential (Patient started 5 days ago with crampy intermittent abdominal pain associated with nausea and an episode of vomiting and multiple episodes of loose to watery diarrhea. Continued with diarrhea over the next few days. Tapered slightly. Taking Pepto-Bismol. He noticed black color stool 1 day.), d/w patient Reviewed Lab Results: he is concerned about dark stool being from GI bleeding. Guaiac testing negative and Hgb blood testing normal. Chemistry and LFTs normal. Presume viral GE. treat symptoms and presume will self limit improve in next few days. Departure - Departure Disposition: 01 Home, Self Care Clinical Impression: Diarrhea, Gastroenteritis, acute Condition: Stable Record reviewed to determine appropriate education?: Yes Prescriptions: Diphenoxylate/Atropine [Lomotil] 1 each PO QID PRN #12 tablet PRN Reason: Diarrhea Famotidine [Pepcid] 20 mg PO BID #20 tablet Ondansetron Odt [Zofran] 4 mg TL Q6H PRN #10 tablet PRN Reason: Nausea / Vomiting Comments: Your blood count is quite normal. The test on your stool shows negative for blood. I presume there for the dark coloring is from the Pepto-Bismol which will do that. I presume most likely your stomach symptoms and diarrhea relate to a viral type illness. Your blood test otherwise show normal liver and pancreas enzymes and markers. The pain and discomfort in the upper abdomen is probably from irritation of the stomach. Irritation of the stomach and intestine combination can be caused by a viral type illness and typically will be a 3 to 5-day process. At this point I would treat the symptoms with antinauseant and antidiarrhea medications. Some acid reducing medicine such as famotidine twice daily for the next several days to week as the stomach will be irritated. Again no signs of blood in the stool and your blood count is good. Recheck if not improved over the next few days and resolved. I sent prescriptions to your preferred pharmacy. Forms: PCP List Discharge Date/Time: 01/29/24 14:34
[2024-01-29 13:10] LABS: BASOPHILS % (AUTO) 0.5 %; EOSINOPHILS # (AUTO) 0.1 10^3/uL (0.0-0.7); EOSINOPHILS % (AUTO) 2.4 %; HCT - HEMATOCRIT 45.4 % (42.0-52.0); HGB - HEMOGLOBIN 15.3 g/dL (14.0-18.0); LYMPHOCYTES # (AUTO) 1.6 10^3/uL (1.5-3.5); LYMPHOCYTES % (AUTO) 27.4 %; MEAN CORPUSCULAR HEMOGLOBIN 33.1 pg (27.0-31.0); MEAN CORPUSCULAR HGB CONC 33.7 g/dL (32.0-36.0); MEAN CORPUSCULAR VOLUME 98.3 fL (80.0-94.0); MEAN PLATELET VOLUME 9.5 fL (7.4-11.4); MONOCYTES # (AUTO) 0.6 10^3/uL (0.0-1.0); MONOCYTES % (AUTO) 9.6 %; NEUTROPHILS # (AUTO) 3.6 10^3/uL (1.5-6.6); NEUTROPHILS % (AUTO) 59.9 %; PLT - PLATELET COUNT 317 10^3/uL (130-450); RED BLOOD COUNT 4.62 10^6/uL (4.70-6.10); WHITE BLOOD COUNT 5.9 x10^3/uL (4.8-10.8)
[2024-01-29 13:30] LABS: ALBUMIN 4.8 g/dL (3.2-5.5); ALBUMIN/GLOBULIN RATIO 1.9 (1.0-2.2); BILIRUBIN,TOTAL 0.8 mg/dL (0.2-1.0); CALCIUM 9.8 mg/dL (8.5-10.3); CREATININE 0.7 mg/dL (0.6-1.3); POTASSIUM 4.3 mmol/L (3.5-4.5); TOTAL PROTEIN 7.3 g/dL (6.4-8.9)
[2024-01-29] MEDS: DIPHENOX/ATROPINE 2.5/0.025 MG TABLET PO STA (14:33)
[2024-01-29 14:37] VITALS: BP 150/90
== END 2024-01-29 14:34 | disposition home or self-care (01) ==
LOC: ED 12:27
DX: K52.9 Noninfective gastroenteritis and colitis, unspecified (principal); I10 Essential (primary) hypertension; E78.00 Pure hypercholesterolemia, unspecified; J45.909 Unspecified asthma, uncomplicated; F17.200 Nicotine dependence, unspecified, uncomplicated
CPT/HCPCS: 36415; 80053; 82272; 83690; 85025; 99283; 99284; A9270